=== PATIENT | female | born 1980 | race Hispanic/Latino ===

== ENCOUNTER → 2019-09-10 | Outpatient (CLI) | payer OTHER | LOC: MAMMO 11:04 | PROVIDERS: ATTEND Obstetrics & Gynecology | DX: Z12.31 Encounter for screening mammogram for malignant neoplasm of breast (principal) | CPT/HCPCS: 77067 ==

== ENCOUNTER → 2019-09-27 | Outpatient (CLI) | payer OTHER ==
--- NOTE | 2019-09-29 08:50 | Diagnostic Imaging Report ---
#[id number] - USBRELIMLT ULTRASOUND OF THE LEFT BREAST : 09/27/2019 Comparison is made to exams dated: 09/10/2019 mammogram and 09/27/2019 mammogram - [facility]. Color flow and real-time ultrasound were performed on the left breast. Gavin scale images of the real-time examination were reviewed. There is scar tissue from prior breast reduction in the area of the focal asymmetry on mammogram. No abnormalities were seen sonographically in the left breast. IMPRESSION: NEGATIVE There is no sonographic evidence of malignancy. A 1 year screening mammogram is recommended. ERAN MILLER M.D. kw/:09/28/2019 12:44:54 Service Worker Helper: Mariah Potts [facility], [facility] letter sent: Normal Exam Ultrasound BI-RADS: 1 Negative
--- NOTE | 2019-09-29 08:50 | Diagnostic Imaging Report ---
#[id number] - MGDXLT #UNILATERAL LEFT DIGITAL DIAGNOSTIC MAMMOGRAM WITH SPOT COMPRESSION: 09/27/2019 Comparison is made to exam dated: 09/10/2019 mammogram - [facility] [place]. There are scattered fibroglandular elements in the left breast. There is a focal asymmetry in the left breast at 7 o'clock posterior depth. No other significant masses or calcifications are seen in the breast. IMPRESSION: INCOMPLETE: NEEDS ADDITIONAL IMAGING EVALUATION The focal asymmetry in the left breast is indeterminate. An ultrasound will be performed at the same visit. Follow-up with ACR/ACS guidelines. ERAN MILLER M.D. kw/:09/28/2019 12:43:48 Ocean Biologist: Delia NIELSON(R)(M), [facility] [place] Mammogram BI-RADS: 0 Indeterminate
== END ==
LOC: MAMMO 13:40
PROVIDERS: ATTEND Obstetrics & Gynecology
DX: N64.89 Other specified disorders of breast (principal)